=== PATIENT | female | born 1985 | race Hispanic/Latino ===

== ENCOUNTER 2018-03-19 18:37 | Emergency (ER) | payer OTHER ==
--- NOTE | 2018-03-19 19:19 | OBHP ---
Datetime: 03/19/2018 19:15 IP Adm Impression: Term, intrauterine IP Admit Plan: Discharge home Admit Comment, IP Provider: at 38+week came c//o lof started i am, happened twie, no ctxs, vb,+ fm obhx primi pmh de med pnv all sulfa psh de soch de sse neg notrazine, neg pooling a/p at 39=weeks r/o rom dc home lbor given po hy f/u pmd in 1-2 day Pelvic Type - PN: Adequate Extremities - PN: Normal Abdomen - PN: Normal Back - PN: Normal Breast - PN: Normal Lungs - PN: Normal Heart - PN: Normal Thyroid - PN: Normal Neurologic - PN: Normal HEENT - PN: Normal General - PN: Normal FHR - Baseline A Provider: 140 Membranes, Provider: Intact Contraction Comments Provider: irrg IP Hx Assessment: The History has been Reviewed and is Current EGA AdmitDate IP: 39.3 Vital Signs Provider: Reviewed; Within Normal Limits IP Chief Complaint: Suspected ruptured membranes NICHD Variability Prov Fetus A: Moderate 6-25bpm NICHD Accel Fetus A IP Provider: 15X15 FHR Category Provider Fetus A: Category I Dilatation, Provider: 1-2 Effacement, Provider: 60 Station, Provider: -3 Genitourinary Exam: Normal DTRs - PN: Normal
--- NOTE | 2018-03-19 19:19 | OBDCSUM ---
Datetime: 03/19/2018 19:18 Discharged to, Provider: Home Follow up at, Provider: 1-2 Follow up in weeks, Provider: dr wilson Discharge Comment, Provider: dc home lbor given po hy f/u pmd in 1-2 day Discharge Diagnosis Prov Other: 39 weks false la nst
[2018-03-19 23:53] VITALS: BP 136/85; PULSE 95; RESP 20; TEMP 96.7; O2SAT 98
== END 2018-03-19 19:26 | disposition home or self-care (01) ==
LOC: C.EROB 18:37
DX: O47.1 False labor at or after 37 completed weeks of gestation (principal); Z3A.38 38 weeks gestation of pregnancy

== ENCOUNTER 2018-03-20 18:00 | Inpatient (IN) | payer OTHER ==
[2018-03-20 18:49] VITALS: BMI 36.5
[2018-03-20] MEDS ORDERED: Lactated Ringer's 1,000 ML IV SCH ×2 (19:00)
[2018-03-20 19:06] LABS: BASO % 0.4 % (0.0-2.0); EOS % 0.1 % (0.0-4.0); HEMOGLOBIN 11.5 g/dL (11.0-16.0); LYMPH # 0.8 K/uL (1.0-4.3); LYMPH % 7.1 % (20.0-40.0); MEAN CORPUSCULAR HEMOGLOBIN 28.9 pg (27.0-31.0); MEAN CORPUSCULAR HGB CONC 34.6 g/dL (33.0-37.0); MEAN PLATELET VOLUME 9.1 fL (7.2-11.7); MONO # 0.3 K/uL (0.0-0.8); MONO % 2.1 % (0.0-10.0); NEUT # 10.7 K/uL (1.8-7.0); NEUT % 90.3 % (50.0-75.0); PLATELET COUNT 197 K/uL (130-400); RBC 3.98 Mil/uL (3.80-5.20); RED CELL DISTRIBUTION WIDTH 13.3 % (11.5-14.5); WHITE BLOOD COUNT 11.8 K/uL (4.8-10.8)
[2018-03-20 19:12] LABS: MEAN CELL VOLUME 83.5 fL (81.0-99.0)
[2018-03-20 19:18] LABS: ALBUMIN 3.5 g/dL (3.5-5.0); CALCIUM 9.1 mg/dl (8.6-10.4); GFR AFRICAN-AMERICAN > 60; GFR NON-AFRICAN AMERICAN > 60
--- NOTE | 2018-03-20 19:18 | OBADHP ---
Datetime: 03/20/2018 19:15 Admit Comment, IP Provider: 32yo g1 ed 6/ by lmp _ 12wk us presents w/ c/o ctxs since last night wi th increased freq of q5 since 9:30pm. pt states was here last night for r/o srom and denies leakage s christiano. reports good fm. denies h/a, scotomata, ruq pain/midepigstric, or blurred va pmhx _pshx: denies allerg: sulfa rash medic: pnv; feso4; zoloft shx: denies etoh, drugs or tobacco I:39.4wks labor Elev BP P: admit to ld pt d/w dr wilson [facility] labs. Datetime: 03/20/2018 18:55 Pelvic Type - PN: Adequate Extremities - PN: Normal Abdomen - PN: Normal Lungs - PN: Normal Neurologic - PN: Normal HEENT - PN: Normal General - PN: Normal Presentation-Admit: Vertex Contraction Comments Provider: 2-3min Comments, ACOG Physical Exam: gbs neg, hiv, rpr neg in 3rd trim rubella imm O+ IP Chief Complaint: Uterine contractions NICHD Variability Prov Fetus A: Moderate 6-25bpm NICHD Accel Fetus A IP Provider: 10X10 FHR Category Provider Fetus A: Category I NICHD Decel Fetus A IP Provider: None Dilatation, Provider: 2 Effacement, Provider: 90 Station, Provider: -1 Genitourinary Exam: Normal EGA AdmitDate IP: 39.4 IP Adm Impression: Term, intrauterine IP Admit Plan: Admit to unit Datetime: 03/19/2018 19:15 Back - PN: Normal Breast - PN: Normal Heart - PN: Normal Thyroid - PN: Normal FHR - Baseline A Provider: 140 Membranes, Provider: Intact IP Hx Assessment: The History has been Reviewed and is Current Vital Signs Provider: Reviewed; Within Normal Limits DTRs - PN: Normal
[2018-03-20 19:27] LABS: ALT/SGPT 19 U/L (9-52); AST/SGOT 29 U/L (14-36); BLOOD UREA NITROGEN 7 mg/dL (7-17)
[2018-03-20 19:56] LABS: LYMPHOCYTE 5 % (20-40); MONOCYTE 2 % (0-10); NEUTROPHIL 93 % (50-75); PLATELET ESTIMATE NORMAL (NORMAL); TOTAL CELLS COUNTED 100
[2018-03-20 21:13] LABS: SQUAMOUS EPITHIAL 1 /hpf (0-5); URINE BACTERIA OCC (<OCC); URINE BILIRUBIN NEGATIVE (NEGATIVE); URINE BLOOD 3+ (NEGATIVE); URINE CLARITY Hazy (Clear); URINE COLOR Yellow (YELLOW); URINE GLUCOSE (UA) 1+ mg/dL (Normal); URINE LEUKOCYTE ESTERASE NEG Leu/uL (Negative); URINE PROTEIN 2+ mg/dL (NEGATIVE); URINE UROBILINOGEN NORMAL mg/dL (0.2-1.0)
[2018-03-21] MEDS ORDERED: Oxytocin 20 units in LR 2,000 ML IV ONE (06:32)
[2018-03-21] MEDS ORDERED: Lidocaine 2% MPF (5 ml) Inj ONE (06:33)
[2018-03-21] MEDS ORDERED: Fentanyl/Bupivacaine HCl 250 ML EPI ONE (07:47)
[2018-03-21] MEDS ORDERED: Oxytocin 30 UNIT 30 UNITS/500 ML BAG IV ONE (13:13)
--- NOTE | 2018-03-21 14:05 | OBPN ---
Datetime: 03/21/2018 14:00 IP Progress Impression: Normal progression of labor IP Progress Plan: Continue present management Membranes, Provider: Ruptured Contraction Comments Provider: q 2-4 min FHR - Baseline A Provider: 150 Gestation - Est Wks by US: 39.5 Presentation-Admit: Vertex IP Progress Note Comment: pt seen adn examiend s/p epidural admitted with cat II Tracing, improved elvelated BP, pIH labs reviwed spotnaeusl progession 2-->4--> SROM -->8 s/p peidural-->10cm ptocin started as per protocol VSS EMF: See aove Pitc 6mu/min A/P @ 39+ wks in active labor -con tpitocin as perprotocol -cont curren mangnete Vital Signs Provider: Reviewed NICHD Variability Prov Fetus A: Moderate 6-25bpm Dilatation, Provider: 10 Effacement, Provider: 100 Station, Provider: -1 Datetime: 03/20/2018 18:55 NICHD Accel Fetus A IP Provider: 10X10 FHR Category Provider Fetus A: Category I NICHD Decel Fetus A IP Provider: None
[2018-03-21] MEDS ORDERED: Oxycodone/Acetaminophen 5/325 mg Tab PO PRN ×2 (18:42)
--- NOTE | 2018-03-21 18:42 | OBDS ---
DELIVERY PERSONNEL Delivery Doctor: Macey Mujica MD Scrub Nurse: Beba Chino Bilingual Spanish Inbound Sales: Alejandra Sams RN Anesthesiologist: swapnil MATERNAL INFORMATION Delivery Anesthesia: Epidural Medications in Delivery: pitocin 20 Estimated Blood Loss (ml): 400 Placenta Cultured: No Maternal Complications: None Provider Comments: pt was fully dilated. verbal consent give for right mediolateral episitomy given and performed. aturmatic, spontaneous deliver of head with compound presentation left arm. no nuchal cord noted. atraumatic , spontanoeus delivery of anterior followed b posterior shoulder followd by de liveyr of the body. both oral and nasal passages of the baby were bulub suctioned. umbilical cord was clamped adn cut. baby hadned to mother on abdoen wtih rn assistance. cord blood adn cord gases colle cted ans sent x 2. Spontenaousy deivery of intact placenta with membranes. fundus firm. goo dhemostai ss, third degree laceration with rihgt medial laceration noted and repaired with local anestehsia. G oo dhemoasis, no complicaitn. live male infant agpars 9,9 weigh tof 6lbs lbs 15 ounces ebls 400 ml LABOR SUMMARY EDC: 03/23/2018 00:00 No. Babies in Womb: 1 Attempted: No Labor Anesthesia: Epidural LABOR INFORMATION Reason for Induction: Not Applicable Onset of Labor: 03/21/2018 12:00 Complete Dilatation: 03/21/2018 10:00 Oxytocin: N/A Group B Beta Strep: Negative Antibiotics # of Doses: n/a Antibiotics Time of Last Dose: n/a Steroids Given: None Reason Steroids Not Administered: Not Applicable MEMBRANES Membranes Rupture Method: Spontaneous Rupture of Membranes: 03/20/2018 23:30 Length of Rupture (hrs): 18.52 Amniotic Fluid Color: Clear Amniotic Fluid Amount: Moderate Amniotic Fluid Odor: Normal STAGES OF LABOR Stage 1 hrs: -2 Stage 1 min: 0 Stage 2 hrs: 8 Stage 2 min: 1 Stage 3 hrs: 0 Stage 3 min: 7 Total Time in Labor hrs: 6 Total Time in Labor min: 8 VAGINAL DELIVERY Episiotomy: Right Mediolateral Laceration Extension: Third Degree Laceration Type: Perineal Laceration Repair: Yes Initial Vag Sponge Count: 10 Final Vag Sponge Count: 10 Initial Vag Sharps Count: 4 Final Vag Sharps Count: 4 Sponge Count Correct: Yes Sharps Count Correct: Yes BABY A INFORMATION Delivery Date/Time: 03/21/2018 18:01 Method of Delivery: Vaginal Born in Route : No : N/A Forceps: N/A Vacuum Extraction: N/A Shoulder Dystocia : No SHOULDER DYSTOCIA BABY A Delivery Date/Time: 03/21/2018 18:01 PRESENTATION/POSITION BABY A Presentation: Cephalic Cephalic Presentation: Vertex Vertex Position: Right Occipital Anterior Breech Presentation: N/A PLACENTA INFORMATION BABY A Placenta Delivery Time : 03/21/2018 18:08 Placenta Method of Delivery: Spontaneous Placenta Status: Delivered SCORES BABY A Heart Rate 1 min: >100 bpm Resp Effort 1 min: Good Cry Reflex Irritability 1 min: Cough or Sneeze or Pulls Away Muscle Tone 1 min: Active Motion Color 1 min: Body [place], Extremities Blue Resuscitation Effort 1 min: Tactile Stimulation SCORE 1 MIN: 9 Heart Rate 5 min: >100 bpm Resp Effort 5 min: Good Cry Reflex Irritability 5 min: Cough or Sneeze or Pulls Away Muscle Tone 5 min: Active Motion Color 5 min: Body [place], Extremities Blue SCORE 5 MIN: 9 INFORMATION BABY A Gestational Age at Delivery: 39.5 Gestational Status: Term Outcome : Liveborn Infant Condition : Stable Infant Sex: Male IDENTIFICATION/MEDS BABY A ID Band Number: [id number] Sensor Number: [id number] WEIGHT/LENGTH BABY A Birthweight (gms): 3150 Infant Weight (lb): 6 Infant Weight (oz): 15 Infant Length Inches: 19.00 Length cms: 48.3 CORD INFORMATION BABY A No. Cord Vessels: 3 Nuchal Cord : N/A Cord Blood Taken: Yes Suction: Mouth; Nose ASSESSMENT BABY A Complications: None Physical Findings at Delivery: Within Normal Limits Infant Respirations: Appears Normal Health Advisor/ALS Called : No Care By: ekaterina Transferred To: Remains with Mother
[2018-03-21] MEDS ORDERED: Benzocaine/Menthol 20%-0.5% Topical Spray (60 ml) TOP PRN (18:57)
[2018-03-21] MEDS ORDERED: ceFAZolin IV 2 gm in Dextrose 2 GM/50 ML BAG IVPB ONE (20:54)
[2018-03-22 07:46] LABS: BASO % 0.2 % (0.0-2.0); EOS % 0.2 % (0.0-4.0); LYMPH # 1.7 K/uL (1.0-4.3); LYMPH % 12.9 % (20.0-40.0); MEAN CELL VOLUME 84.6 fL (81.0-99.0); MEAN CORPUSCULAR HEMOGLOBIN 29.1 pg (27.0-31.0); MEAN CORPUSCULAR HGB CONC 34.4 g/dL (33.0-37.0); MEAN PLATELET VOLUME 8.9 fL (7.2-11.7); MONO # 0.5 K/uL (0.0-0.8); MONO % 3.8 % (0.0-10.0); NEUT # 11.1 K/uL (1.8-7.0); NEUT % 82.9 % (50.0-75.0); RBC 2.92 Mil/uL (3.80-5.20); RED CELL DISTRIBUTION WIDTH 13.7 % (11.5-14.5); WHITE BLOOD COUNT 13.4 K/uL (4.8-10.8)
[2018-03-22 07:48] LABS: HEMOGLOBIN 8.5 g/dL (11.0-16.0)
[2018-03-22 07:56] LABS: ALBUMIN 2.5 g/dL (3.5-5.0); ALT/SGPT 11 U/L (9-52); AST/SGOT 28 U/L (14-36); BLOOD UREA NITROGEN 7 mg/dL (7-17); CALCIUM 8.5 mg/dl (8.6-10.4); GFR AFRICAN-AMERICAN > 60; GFR NON-AFRICAN AMERICAN > 60
[2018-03-22] MEDS: Multiple Vitamins Tab PO SCH (09:13)
--- NOTE | 2018-03-23 10:00 | OBPPN ---
Datetime: 03/23/2018 09:56 PP Pain Prov: Within normal limits PP Nausea Prov: Denies PP Flatus Prov: Yes PP BM Prov: Yes PP Breasts Prov: Normal PP Heart Prov: Normal PP Lungs Prov: Normal PP Abdomen/Uterus Prov: Normal PP Lochia Prov: Normal PP Vulva/Perineum Prov: Normal PP CVA Tenderness Prov: Normal PP Extremities Prov: Normal PP C/S Incision Prov: Not Applicable PP Progress Prov: Normal PP Comments Phys Exam Prov: abd: soft, nt, nd fundus; firm, blewo leve of umbiucs ve; minao lochai, non fousl smleling, episotomy site c//di healing well ext no calf tndere negative hlip ntenderer amblautiong: difficyt to put pressure on right lwoer extermiests PP Impression Prov: Normal progression PP Plan Other Prov: f/u Pelvix xray, pt PP Progress Note Prov: pt seen adn examiend and reprots pain is controlled. pt is ambaitng with diff iucyt not albe to put presses on right foot. with with normal bowel and bladder mvements. pt dnies an y bleeidng, fever, chills, naseu vmoiotng, cps, sob VSS PE see above a/p s/p PPD #2 with difficulty waling f/u Pelvic xray r/o pubic symphsis spearation physical thepray consults abodminal bidner paina mangkent encourarabe bresa tfeeding Vital Signs Provider PP: Reviewed; Within Normal Limits
[2018-03-23] MEDS: Multiple Vitamins Tab PO SCH (10:12)
--- NOTE | 2018-03-23 16:53 | RAD ---
PROCEDURE: Radiographs of the pelvis. HISTORY: difficulty walking COMPARISON: None. FINDINGS: BONES: Pelvic Bones: There is marked pelvic pubic symphyseal diastases of 3.3 cm in this patient with a history of having recently delivered a baby. Hips: Grossly unremarkable. JOINTS: Sacroiliac Joints: Unremarkable. Pubic Symphysis: Unremarkable. OTHER FINDINGS: None. IMPRESSION: . Marked pelvic symphyseal diastases of 3.3 cm in this patient with a history of having recently delivered a baby. . Consider OBGYN consultation.
--- NOTE | 2018-03-24 07:13 | OBPPN ---
Datetime: 03/24/2018 07:10 PP Pain Prov: Within normal limits PP Nausea Prov: Denies PP Flatus Prov: Yes PP BM Prov: Yes PP Breasts Prov: Normal PP Heart Prov: Normal PP Lungs Prov: Normal PP Abdomen/Uterus Prov: Normal PP Lochia Prov: Normal PP Vulva/Perineum Prov: Normal PP CVA Tenderness Prov: Normal PP Extremities Prov: Normal PP C/S Incision Prov: Not Applicable PP Progress Prov: Normal PP Impression Prov: Normal progression PP Progress Note Prov: pt seen adn examiend and dx iwht pubuic symphysis separaration, s/p physlca l thepray reprots feelign better pt ambuiatn gwiht walker, voidng, pasising, flatus, +BM, no fever, chills, naseu.v omtiing, breast feeding VSS PE see above A/p s/p vacumn assisted vagianl delivery PPD #3 with pubic symphyiss spearation s/p physical therpay ortho eval possible dxc today preciaton givne Vital Signs Provider PP: Reviewed; Within Normal Limits
--- NOTE | 2018-03-24 07:16 | OBDCSUM ---
Datetime: 03/24/2018 07:12 Discharged to, Provider: Home Disch Instr Activity: Normal activity Disch Instr Diet: Regular Discharge Instructions, Provider: Routine instructions given Discharge Diagnosis, Provider: Term Delivered Discharge Time: 03/24/2018 07:12 Disch Referrals: None Contraception discussed, Prov: Yes Disch Activity Restrictions: No exercising; Minimize stair-climbing; No sexual activity; Nothing in vagina - [place], tampons, douche Discharge Comment, Provider: outpatinte physical thepra Discharge Diagnosis Prov Other: pubic symphysis separation Contraception after Delivery: Not Planning to Use
[2018-03-24] MEDS: Multiple Vitamins Tab PO SCH (09:25)
[2018-03-24 11:13] LABS: BASO # 0.1 K/uL (0.0-0.2); BASO % 0.6 % (0.0-2.0); EOS # 0.2 K/uL (0.0-0.7); EOS % 1.7 % (0.0-4.0); HEMOGLOBIN 8.4 g/dL (11.0-16.0); LYMPH # 1.7 K/uL (1.0-4.3); LYMPH % 15.7 % (20.0-40.0); MEAN CELL VOLUME 84.3 fL (81.0-99.0); MEAN CORPUSCULAR HEMOGLOBIN 29.4 pg (27.0-31.0); MEAN CORPUSCULAR HGB CONC 34.8 g/dL (33.0-37.0); MEAN PLATELET VOLUME 7.6 fL (7.2-11.7); MONO # 0.4 K/uL (0.0-0.8); MONO % 3.3 % (0.0-10.0); NEUT # 8.4 K/uL (1.8-7.0); NEUT % 78.7 % (50.0-75.0); RBC 2.88 Mil/uL (3.80-5.20); RED CELL DISTRIBUTION WIDTH 13.5 % (11.5-14.5); WHITE BLOOD COUNT 10.7 K/uL (4.8-10.8)
[2018-03-24 11:58] VITALS: O2SAT 100
--- NOTE | 2018-03-24 12:57 | CT ---
PROCEDURE: CT Abdomen and Pelvis without intravenous contrast HISTORY: pelvic xray showed symphyseal diastases of 3.3cm COMPARISON: None. TECHNIQUE: Contiguous images were obtained from the domes of the diaphragms to the upper thighs without the administration of intravenous contrast. Oral contrast was not administered. Radiation dose: Total exam DLP = mGy-cm. This CT exam was performed using one or more of the following dose reduction techniques: Automated exposure control, adjustment of the mA and/or kV according to patient size, and/or use of iterative reconstruction technique. FINDINGS: LOWER THORAX: Unremarkable. LIVER: Unremarkable. No gross lesion or ductal dilatation. GALLBLADDER AND BILE DUCTS: Unremarkable. PANCREAS: Unremarkable. No gross lesion or ductal dilatation. SPLEEN: Unremarkable. ADRENALS: Unremarkable. No mass. KIDNEYS AND URETERS: Unremarkable. No hydronephrosis. No solid mass. VASCULATURE: Unremarkable. No aortic aneurysm. BOWEL: Unremarkable. No obstruction. No gross mural thickening. APPENDIX: Unremarkable. Normal appendix. PERITONEUM: Unremarkable. No free fluid. No free air. LYMPH NODES: Unremarkable. No enlarged lymph nodes. BLADDER: Unremarkable. REPRODUCTIVE: Enlarged uterus with intrauterine blood products. BONES: Pubic symphyseal diastasis measuring up to 1.9 cm. No acute fracture. OTHER FINDINGS: None. IMPRESSION: Pubic symphyseal diastasis measuring up to 1.9 cm small amount of simple fluid within the joint space. Enlarged uterus with intrauterine blood products.
[2018-03-24 19:46] LABS: BASO % 0.4 % (0.0-2.0); EOS # 0.3 K/uL (0.0-0.7); EOS % 2.6 % (0.0-4.0); LYMPH % 20.6 % (20.0-40.0); MEAN CELL VOLUME 85.6 fL (81.0-99.0); MEAN CORPUSCULAR HEMOGLOBIN 28.7 pg (27.0-31.0); MEAN CORPUSCULAR HGB CONC 33.5 g/dL (33.0-37.0); MEAN PLATELET VOLUME 7.2 fL (7.2-11.7); MONO # 0.4 K/uL (0.0-0.8); MONO % 3.9 % (0.0-10.0); NEUT # 7.2 K/uL (1.8-7.0); NEUT % 72.5 % (50.0-75.0); RBC 2.78 Mil/uL (3.80-5.20); RED CELL DISTRIBUTION WIDTH 13.9 % (11.5-14.5); WHITE BLOOD COUNT 9.9 K/uL (4.8-10.8)
[2018-03-25] MEDS: Multiple Vitamins Tab PO SCH (09:35)
--- NOTE | 2018-03-25 20:18 | PCM.PSYCH ---
Initial Psychiatric Evaluation - Initial Psychiatric Evaluation Type of Admission: Voluntary Legal Status: Capacity Chief Complaint (in patient's own words): "I'm excited to be new mom." History of Present Illness and Precipitating Events: This is a 32 yo White female with medical history of symphesial diastasis was referred for psych evaluation for post depression. Pt was diagnosed with Panic disorder and depression during her High School Pt. denied depressed mood, anhedonia, insomnia or hypersomnia, weight loss, psychomotor agitation, psychomotor retardation, fatigue, guilt, recurrent thoughts of ; so concern for a discrete major depressive episode has not been raised. Currently patient denied anxiety symptoms. She reported that she was feeling anxious 3 days ago, due to her son diagnosed with jaundice and he had received phototherapy. However, now her baby is doing fine. Pt stated that she was worried after knowing that she has had symphesial diastasis. She reported after orthopedic consultation she is feeling relax and calm. Pt stated that she is waiting for braces and discharge to home. She reported she is feeling excited after the of her son. Additionally, she reported that her and mother is supporting her in the care of the child. Pt stated that she use her different coping skills including deep breathing, or distracting her self in other activities or reality base therapy that anxiety symptoms will be only for few minutes and it will be resolved. Pt denied any thoughts to hurt self or anyone else. Pt denied any depressive symptoms during Pt denied agarophobia, panic symptoms. Pt stated in the past she had panic attacks which were characterized by, difficulty in breathing, increase in heart rate, and sweating. However, she denied panic symptoms. Pt. denied any periods of abnormally & persistent elevated expansive or irritable mood and persistently increased goal-directed activity or energy, for 1-weeks duration present most of the day nearly every day. She denied any grandiosity, increased talkativeness, flight of ideas, racing thoughts, distractibility, or increase in goal directed activities; so there is no concern of addis Pt. denied any paranoid delusions, no hallucinations, ideas of reference. No disorganization of speech, or catatonic behavior observed. There is no concern for perceptual disturbances. Pt. denied any history of sexual or physical abuse in the past. Social History: Pt is , has one child. She lives with her . Currently work at [employer]. She has master's degree, ~ ~ ~ ~ ~ ~ ~ ~ ~ ~ ~ ~ ~ ~ ~ ~ ~ ~ ~ ~ ~ ~~ Family History:denied Medical History: please see HPI Current Medications: Active Medications Generic Name Dose Route Start Last Admin Trade Name Freq PRN Reason Stop Dose Admin Benzocaine/Menthol 0 ml 03/21/18 18:57 03/22/18 09:18 Dermoplast 20%-0.5% TOP 60 ml PRN PRN Administration Perineal Discomfort Docusate Sodium 100 mg 03/22/18 10:00 03/25/18 17:01 Colace PO 100 mg BID DAYAN Administration Ibuprofen 600 mg 03/21/18 19:00 03/25/18 17:02 Motrin Tab PO 600 mg Q6 PRN Administration Pain, Mild (1-3) Lactulose 10 gm 03/22/18 10:00 03/25/18 09:35 Enulose PO 10 gm DAILY DAYAN Administration Multivitamins 1 tab 03/22/18 10:00 03/25/18 09:35 Hexavitamin PO 1 tab DAILY DAYAN Administration Sennosides 17.2 mg 03/22/18 10:00 03/25/18 09:34 Senokot Tab PO 17.2 mg DAILY DAYAN Administration Sertraline HCl 50 mg 03/24/18 22:00 03/24/18 21:37 Zoloft PO 50 mg HS DAYAN Administration Past Psychiatric History - Past Psychiatric History Previous Treatment History: None Prior Psychiatric Treatment: Pt was in treatment in [facility] during her HS Nature of Treatment: Sertraline 50 mg po daily History of Abuse: denied History of ETOH/Drug Use: denied History of Family Illness: denied Pertinent Medical Hx (Current Medical&Sleep Prob, Allergies): Allergies Allergy/AdvReac Type Severity Reaction Status Date / Time Sulfa (Sulfonamide Allergy RASH Verified 03/20/18 18:47 Antibiotics) No Known Home Med 03/21/18 Review of Systems - Review of Systems All systems: reviewed and no additional remarkable complaints except (please see HPI) Mental Status Examination - Personal Presentation Personal Presentation: Looks stated age, Dressed appropriate to season - Affect Affect: Broad - Motor Activity Motor Activity: Calm - Reliability in Providing Information Reliability in Providing Information: Good - Speech Speech: Organized - Mood Mood: Neutral - Formal Thought Process Formal Thought Process: No Impairment - Hallucinations/Delusions Hallucinations: Other (denied) Delusions: Other (denied) - Obsessions/Compulsions Obsessions: None Compulsions: None - Cognitive Functions Orientation: Person, Place, Situation, Time Sensorium: Alert Attention/Concentration: Attentive Abstract Thinking: [place] Estimate of Intelligence: Average Judgement: Intact, as evidence by: Good judgement, Intact, as evidence by: Insight regarding need for hospitalization Memory: Recent intact, as evidence by: Ability to recall events of the day - Risk Risk: Other (denied) - Strength & Assets Inventory Strength & Assets Inventory: Intelligence, Family support, Education, Employment status, Employment history, Skills, Cooperative - Limitations Limitations: Other (none) DSM 5 DX - DSM 5 DSM 5 Diagnosis: Adjustment disorder with anxious mood - Recommended/Plan of Treatment Treatment Recommendations and Plan of Treatment: Pt is cleared psychiatrially for discharge once cleared medically because she denied SI, HI, intent or plan. Psychoeducation was provided regarding her diagnosis. Pt was educated regarding Zoloft and it's benefits and side effects including its excretion in the breast milk. Effect of Zoloft on in breast milk was discussed with the pt including but not limited to irritability, sedation, etc. Also advised to stop breast feeding and consider bottle feeding. She verbalized understanding and agree with the treatment plan. Call psych team prn if needed. Recommend to f/u with psychiatrist in [facility] setting. Information about CRC was provided. Pt's information was collaborated with the pt's nurse.
--- NOTE | 2018-03-25 22:04 | OBPPN ---
Datetime: 03/25/2018 22:01 PP Pain Prov: Within normal limits PP Nausea Prov: Denies PP Flatus Prov: Yes PP Breasts Prov: Normal PP Heart Prov: Normal PP Lungs Prov: Normal PP Abdomen/Uterus Prov: Normal PP Lochia Prov: Normal PP Vulva/Perineum Prov: Normal PP CVA Tenderness Prov: Normal PP Extremities Prov: Normal PP Impression Prov: Normal progression PP Progress Note Prov: pt seen adn examiend with pubic symphysis separatin s/p phylsical therpay with walker s/p ortho conslt appreicated VSS PE see above A/P s/P PPD 4 with pubiucs symphyyiss spearation -s/p phyislca therpay -s/p ortho consult -needs pelvic support belt prior to dc -ppostparutm depressin screenign elevated: psych consult, hx of depression on zoloft
[2018-03-26] MEDS: Multiple Vitamins Tab PO SCH (09:39)
--- NOTE | 2018-03-27 03:43 | CP.PCM.CON ---
History of Present Illness - History of Present Illness History of Present Illness: 32 yo Female, no significant PMH, presented to the OB ER at on 03/20/18 for term delivery of her baby boy. Underwent uncomplicated vaginal delivery at on 03/21/18 at 34 weeks term. She started complaining of anterior pelvis pain on 03/23/18. 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 orthopedic consultation was placed and I evaluated the patient on the OB Labor & Delivery unit at on 03/24/18. She confirmed the above history. She localized all of her pain to the pubis with a notable widening that she noticed directly at the location of the pubis symphysis area. Pain at the pubis was worse with ambulation and sitting for extended periods of time. she denied any sacral or SI joint pain. Denied any trauma prior to delivery of her baby boy. Denied other MSK complaints, incontinence, numbness, tingling, posterior pelvic pain, sacro-iliac joint pain, sacral pain, dizzyness. H/H stable since delivery. Review of X-rays pelvis done at 03/23/18: +++ 3.3 cm symphyseal widening, no visible SI joint injury or fracture, rest of pelvic ring appears intact Ct not done yet, pelvic binder not obtained yet. Meds Allergies/Adverse Reactions: Allergies Allergy/AdvReac Type Severity Reaction Status Date / Time Sulfa (Sulfonamide Allergy RASH Verified 03/20/18 18:47 Antibiotics) - Medications Medications: Current Medications Benzocaine/Menthol (Dermoplast 20%-0.5%) 0 ml TOP PRN PRN PRN Reason: Perineal Discomfort Last Admin: 03/22/18 09:18 Dose: 60 ml Docusate Sodium (Colace) 100 mg PO BID [facility] Last Admin: 03/26/18 16:59 Dose: 100 mg Ibuprofen (Motrin Tab) 600 mg PO Q6 PRN PRN Reason: Pain, Mild (1-3) Last Admin: 03/25/18 17:02 Dose: 600 mg Lactulose (Enulose) 10 gm PO DAILY [facility] Last Admin: 03/26/18 11:05 Dose: Not Given Multivitamins (Hexavitamin) 1 tab PO DAILY [facility] Last Admin: 03/26/18 09:39 Dose: 1 tab Sennosides (Senokot Tab) 17.2 mg PO DAILY [facility] Last Admin: 03/26/18 09:39 Dose: 17.2 mg Sertraline HCl (Zoloft) 50 mg PO HS [facility] Last Admin: 03/26/18 22:15 Dose: 50 mg Physical Exam - Extremities Exam Additional comments: Gen= no distress, AAOx3 Pelvis/B/L LE: +++ ttp at pubis/ PS joint with palpable deformity/widening, skin intact - TTP at sacrum/ SI joints/ L-spine no swelling/warmth/redness, - log roll full ROM at all joints w/o pain hip flex w/o pain passive and active +5/5 motor strength hip flex/ext, knee flex/ext, ankle df/pf, toes up and down sensory intact L2-S1, DPN/TN/SPN/ LFCN 2+ DP, BCR all toes DTR 2+ Results - Vital Signs Recent Vital Signs: Last Vital Signs Temp 98.7 F 03/26/18 16:00 Pulse 87 03/26/18 16:00 Resp 20 03/26/18 16:00 BP 125/74 03/26/18 16:00 Pulse Ox 100 03/26/18 16:00 - Labs Result Diagrams: 03/24/18 19:41 03/22/18 07:28 Assessment & Plan - Assessment and Plan (Free Text) Assessment: 32 yo Female, s/p uncomlicated vaginal delivery of baby boy 03/21/18 with anterior pelvic bone pain since delivery pain w/ ambulation no posterior ring pain 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 PLAN: -stable injury at this point -needs strong pelvic (trauma) binder to be placed around great trochanters and pelvis prior to dc home, thsi will close down diastases -needs to complete serial CBC to prove stable H/H over 24 hours from now/ 72 hours from delivery -needs CT pelvis to r/o posterior ring injury/ SI joint widening -if SI joint truly injured and wide on CT, possible need for surgical stabilization fo pelvis and urgent surgery -most likely, posterior ring intact and mainstay of treatment is conservative tx w/ pelvic binder -also, need to monitor vitals and CBC / H/H closely to r/o intra-pelvic hemorrhage, at this point this is also not likely, if there is a drop in H/H then she will need CT-A and Interventional Radiology to help identify and embolize bleeder, possible need for vascular/surgery. -again, today is already almost 72hrs post-delivery and at this point H/H stable since delivery as well as vitals -once H/H and vitals proven stable, CT negative for any other pelvic ring disruption or fracture and pelvic binder is obtained, fitted, and placed on the pt, then she can be dc home -If everything above is fulfilled/negative then she can ambulate w/binder on at all times, WBAT and dc home -If any of the above criteria are positive, it becomes an urgent matter and urgent plan should be executed accordingly. -followup as outpt in my office in 1 week, [facility], [facility], -please contact me with any questions, concerns, updates at [phone] Thank you for allowing me to participate in the care of your pt. Anyi Ross MD Orthopedic Surgery ADDENDUM: CT pelvis was done 03/24/18 at : Read as pubis diastases of 1.9cm (already improved), but no official interpretation of SI joitn or sacrum, rest of pelvic ring. On my review of the CT, the rest of the pelvic ring appears stable. We need the radiologist to comment on the rest of the ring
[2018-03-27 07:36] LABS: BASO # 0.1 K/uL (0.0-0.2); BASO % 1.2 % (0.0-2.0); EOS # 0.2 K/uL (0.0-0.7); EOS % 2.1 % (0.0-4.0); HEMOGLOBIN 9.5 g/dL (11.0-16.0); LYMPH # 2.4 K/uL (1.0-4.3); LYMPH % 26.5 % (20.0-40.0); MEAN CELL VOLUME 85.5 fL (81.0-99.0); MEAN CORPUSCULAR HEMOGLOBIN 29.4 pg (27.0-31.0); MEAN CORPUSCULAR HGB CONC 34.4 g/dL (33.0-37.0); MEAN PLATELET VOLUME 6.9 fL (7.2-11.7); MONO # 0.4 K/uL (0.0-0.8); MONO % 4.4 % (0.0-10.0); NEUT % 65.8 % (50.0-75.0); RBC 3.24 Mil/uL (3.80-5.20); RED CELL DISTRIBUTION WIDTH 13.8 % (11.5-14.5); WHITE BLOOD COUNT 9.1 K/uL (4.8-10.8)
[2018-03-27 08:04] VITALS: BP 121/70; PULSE 96; RESP 18
--- NOTE | 2018-03-27 09:12 | OBPPN ---
Datetime: 03/27/2018 09:10 PP Pain Prov: Within normal limits PP Nausea Prov: Denies PP Flatus Prov: Yes PP BM Prov: Yes PP Breasts Prov: Normal PP Heart Prov: Normal PP Lungs Prov: Normal PP Abdomen/Uterus Prov: Normal PP Lochia Prov: Normal PP Vulva/Perineum Prov: Normal PP CVA Tenderness Prov: Normal PP Extremities Prov: Normal PP C/S Incision Prov: Not Applicable PP Progress Prov: Normal PP Impression Prov: Normal progression PP Plan Prov: Discharge PP Progress Note Prov: s/ ppd 5 with pubmic symcy spearaiotn s/p pysical therapy, with walk s/p orotho wiating for pelvc support belt no compliant vss pe see above a/p s/ pnsvd ppd #5 with pumbicu symysp spearation dischage penidng pelvic support belt folow u with orth as recommend f/u obygn 6 week rpicaogn given outpatien phsycial theray all rx given Vital Signs Provider PP: Reviewed; Within Normal Limits
--- NOTE | 2018-03-27 09:12 | OBDCSUM ---
Datetime: 03/27/2018 09:10 Discharged to, Provider: Home Follow up at, Provider: Dr Mujica 6 week, [place] as ifnormed, physical therayp Disch Instr Diet: Regular Discharge Instructions, Provider: Specific instructions as noted Discharge Diagnosis, Provider: Term Delivered Discharge Time: 03/27/2018 09:10 Disch Activity Restrictions: No exercising; No sexual activity; Nothing in vagina - [place], [place] Discharge Comment, Provider: instufction given call md if quetisn or cocners Discharge Diagnosis Prov Other: pubic sympysis spearation Contraception after Delivery: Not Planning to Use
[2018-03-27] MEDS: Multiple Vitamins Tab PO SCH (09:34)
[2018-03-27 21:47] VITALS: TEMP 97.1
== END 2018-03-27 17:30 | disposition home or self-care (01) | DRG 775 ==
LOC: C.EROB 18:00 → C.4D 18:40 → C.4M 03-21 20:30
PROVIDERS: ADMIT Obstetrics & Gynecology; ATTEND Obstetrics & Gynecology
PROC: 0W8NXZZ Division of Female Perineum, External Approach (ICD-10-PCS; principal; 2018-03-21)
PROC: 0DQR0ZZ Repair Anal Sphincter, Open Approach (ICD-10-PCS; 2018-03-21)
PROC: 10E0XZZ Delivery of Products of Conception, External Approach (ICD-10-PCS; 2018-03-21)
DX: O63.9 Long labor, unspecified (principal); O70.20 Third degree perineal laceration during delivery, unspecified; Z3A.00 Weeks of gestation of pregnancy not specified; O32.6XX0 Maternal care for compound presentation, not applicable or unspecified; O99.344 Other mental disorders complicating childbirth; F43.22 Adjustment disorder with anxiety; Z3A.39 39 weeks gestation of pregnancy; Z37.0 Single live birth